=== PATIENT | female | born 1985 | race Caucasian/White ===

== ENCOUNTER 2024-08-03 06:50 | Outpatient (CLI) | payer OTHER | END 2024-08-03 23:59 | disposition home or self-care (01) | LOC: MRI02 06:50 | PROVIDERS: ATTEND Nurse Practitioner Family | DX: S43.492A Other sprain of left shoulder joint, initial encounter (principal); M75.102 Unspecified rotator cuff tear or rupture of left shoulder, not specified as traumatic; M75.81 Other shoulder lesions, right shoulder; M25.512 Pain in left shoulder; M19.012 Primary osteoarthritis, left shoulder; X58.XXXA Exposure to other specified factors, initial encounter; Y93.89 Activity, other specified; Y92.89 Other specified places as the place of occurrence of the external cause; Y99.8 Other external cause status | CPT/HCPCS: 73221 ==

== ENCOUNTER 2024-11-03 11:21 | Day surgery (SDC) | payer OTHER ==
[2024-10-28 12:13] LABS: BASOPHILS % (AUTO) 0.3 % (0-1); EOSINOPHILS # (AUTO) 0.1 X10'3 (0-0.9); EOSINOPHILS % (AUTO) 1.9 % (0-6); LYMPHOCYTES % (AUTO) 41.3 % (21-51); MEAN CORPUSCULAR HEMOGLOBIN 28.2 PG (27.0-31.0); MEAN CORPUSCULAR HGB CONC 32.1 g/dL (33.0-36.5); MEAN CORPUSCULAR VOLUME 87.8 FL (78-98); MEAN PLATELET VOLUME 7.6 FL (7.4-10.4); MONOCYTES # (AUTO) 0.5 X10'3 (0-0.9); MONOCYTES % (AUTO) 6.8 % (2-12); NEUTROPHILS # (AUTO) 3.6 X10'3 (1.8-7.7); NEUTROPHILS % (AUTO) 49.7 % (42-75); PRE OP HEMATOCRIT 37.3 % (35.0-45.0); PRE OP PLATELET COUNT 389 X10'3 (140-440); PRE OP WHITE BLOOD COUNT 7.2 10'3 (4.8-10.8); RED BLOOD COUNT 4.24 X10'6 (4.20-5.60); RED CELL DISTRIBUTION WIDTH 14.5 % (11.5-14.5)
[2024-10-28 12:15] LABS: ALBUMIN 3.3 G/DL (3.4-5.0); ALBUMIN/GLOBULIN RATIO 0.8 (1.1-1.5); ALKALINE PHOSPHATASE 113 IU/L (46-116); BLOOD UREA NITROGEN 14 MG/DL (7-18); CALCIUM 8.8 MG/DL (8.5-10.1); CHLORIDE 106 MMOL/L (99-107); PRE OP ALT 38 U/L (30-65); PRE OP ANION GAP 5 (8-16); PRE OP AST 29 U/L (10-37); PRE OP BILIRUB, TOTAL 0.3 MG/DL (0.0-1.0); PRE OP GLUCOSE 88 MG/DL (70-104); PRE OP POTASSIUM 4.3 MMOL/L (3.4-5.1); PRE OP SODIUM 140 MMOL/L (135-145); TOTAL CARBON DIOXIDE 29.3 MMOL/L (24-32); TOTAL PROTEIN 7.6 G/DL (6.4-8.2); eGFR 61 ML/MIN
[2024-11-03] VITALS (11 sets, daily range): BP systolic 112–137; BP diastolic 65–88; PULSE 70–100; RESP 12–16; TEMP 98.4–98.5; O2SAT 98–100
[~2024-11-03] VITALS: Ht 172.7 cm; Wt 103.5 kg
[2024-11-03] MEDS: ceFAZolin 2gm/dext,iso 50mL 50 ML IV ONE (05:30)
[~2024-11-03 11:21] MED LIST: ASCO500C12 PO; BUPR-480 PO; FISH OIL PO; LEVO125T8 PO; MAGN400C PO; METH1TAB32 PO
[2024-11-03] MEDS: INDOCYANINE GREEN 25 MG/10 ML VIAL IV ONE (11:51)
[2024-11-03] MEDS: famotidine 20mg tablet PO ONE (11:59)
[2024-11-03] MEDS: ringers solution, lacted 1,000 ML IV SCH (12:01)
[2024-11-03] MEDS ORDERED: ALPR-624 PO (12:09)
[2024-11-03] MEDS ORDERED: BUPIVAcaine 2.5mg/ml inj 50ml vial (contains preservative) ONE (13:20)
[2024-11-03] MEDS ORDERED: LIDOcaine 1% 30ml preserv. free vial ONE (13:21)
[2024-11-03] MEDS ORDERED: fentaNYL/PF 50MCG/1 ML 2ML syringe ONE (14:33)
[2024-11-03] MEDS ORDERED: acetaminophen 1,000mg/100ml IV 100 ML IV ONE (14:33)
[2024-11-03] MEDS ORDERED: glycopyrrolate 0.2mg/ml inj ONE (14:34)
[2024-11-03] MEDS ORDERED: midazolam 1 mg/ML 2ml injection ONE (14:34)
[2024-11-03] MEDS ORDERED: neostigmine methylsulfate 1 MG/ML 10ml vial ONE (14:34)
[2024-11-03] MEDS ORDERED: LIDOcaine 2% (20mg/ml) 5ml vial ONE (14:34)
[2024-11-03] MEDS ORDERED: rocuronium 10mg/ml inj IV ONE ×2 (14:34)
[2024-11-03] MEDS ORDERED: ondansetron/PF 4mg/2ml inj ONE (14:34)
[2024-11-03] MEDS ORDERED: propofol inj 20 ML IV ONE (14:35)
--- NOTE | 2024-11-03 14:41 | HISTORY AND PHYSICAL ---
History & Physical Providers to CC CC: MICKEY BONNER MD ~ History of Present Illness Reason for Admit\Complaint: Symptomatic cholelithiasis History of Present Illness Interval history and physical exam Patient was seen in my office little over a month ago with symptomatic c holelithiasis She wished to proceed with watchful waiting, however, she has had progressive and worsening symptoms She is here today for elective cholecystectomy She denies any change in her past medical history since she was seen in the office (please see previous history and physical exam for all pertinent details) She is scheduled for robotic assisted, laparoscopic possible open cholecystectomy. Allergies: Coded Allergies: acetaminophen (Verified Allergy, Unknown, ITCHING, 11/02/24) oxycodone (Verified Allergy, Unknown, ITCHING, 11/02/24) Home Medications Home Medications Active Reported Xanax (Alprazolam) 0.5 Mg Tablet 2 Tab PO PRN PRN 30 Days Vitamin C (Ascorbic Acid) 500 Mg Capsule.sa 1 Cap PO DAILY 30 Days Magnesium (Magnesium Oxide) 400 Mg Magnesium Capsule 1 Cap PO Q12H 30 Days [Fish Oil] 1 Unit PO DAILY Levothyroxine Sodium 125 Mcg Tablet 1 Tab PO DAILY Methenamine Hippurate 1 Gram Tablet 1 Tab PO BID Bupropion Xl (Bupropion HCl) 300 Mg Tab.er.24h 1 Tab PO DAILY ROS ROS Reviewed and negative Exam Vitals: Vital Signs Date Time Temp Pulse Resp B/P (MAP) Pulse Ox O2 Delivery O2 Flow Rate FiO2 11/03/24 11:30 100 16 100 11/03/24 11:30 Room Air 11/03/24 11:30 98.4 117/88 (98) General: 38-year-old female in no acute distress Chest: Lungs clear to auscultation bilaterally Cardiovascular: Regular rate and rhythm without murmurs Abdomen: Soft and nondistended Problems: (1) Symptomatic cholelithiasis Assessment & Plan: The risks, benefits, and alternatives to a robotic assisted, laparoscopic possible open cholecystectomy were discussed with the patient. Risks include, but are not limited to, bleeding, infection, injury to intra- abdominal structures, injury to the biliary tree, postoperative bile leak and retained common bile duct stone. Patient verbalized understanding and wishes to proceed with surgery. We will do so today as scheduled MICKEY BONNER MD Nov 03, 2024 14:41
[2024-11-03] MEDS ORDERED: sevoflurane 250ml liquid IH ONE (14:53)
[2024-11-03] MEDS ORDERED: ringers solution, lacted 1,000 ML IV SCH (15:00)
[2024-11-03] MEDS ORDERED: ondansetron/PF 4mg/2ml inj IV PRN (15:00)
[2024-11-03] MEDS ORDERED: fentaNYL/PF 50MCG/1 ML 2ML syringe IV PRN ×2 (15:00)
[2024-11-03] MEDS ORDERED: labetalol 20mg/4ml (5mg/ml) syringe IV PRN (15:00)
[2024-11-03] MEDS ORDERED: hydrALAZINE 20mg/ml inj. IV PRN (15:00)
[2024-11-03] MEDS ORDERED: morphine 2 MG/ML inj. syringe IV PRN (15:00)
[2024-11-03] MEDS ORDERED: morphine 4 MG/ML inj SYRINge IV PRN (15:00)
[2024-11-03] MEDS: BUPIVAcaine/PF 2.5 mg/ml (0.25%) 30ml vial IJ ONE (15:12)
--- NOTE | 2024-11-03 15:50 | OPERATIVE REPORT ---
Operative Report Providers to CC CC: MARKY BONNER MD ~ Date of Procedure: Nov 03, 2024 Pre-Operative Diagnosis: Symptomatic cholelithiasis Post-Operative Diagnosis SAME as PRE-Op Procedure Performed Robotic assisted, laparoscopic cholecystectomy Surgeon: Marky Bonner MD FACS [employer] None Anesthesiologist: Hunter Ibanez Type of Anesthesia: General Findings: Cholelithiasis Critical view of safety obtained and confirmed using fluorescent cholangiography Wound class III Complications None Prosthetics\Implants used: None Estimated Blood Loss: Minimal Specimen Removed: Gallbladder Description of Procedure: Patient was brought to the operating room and identified by the nursing staff and the attending physician. Patient was placed supine and general anesthesia was induced. A supraumbilical, midline incision was made, long enough to accommodate a 12 mm Brown port. Brown technique was used to gain entry into the abdomen. Stay sutures were placed in the Brown port anchored to the fascia. Abdomen was insufflated without incident. Laparoscope was inserted and the abdomen surveyed. Secondary, 8.5 mm robotic trochars were placed in the left upper quadrant and right lateral abdomen. Robotic arm was docked to the patient. Robotic instruments were guided intra- abdominally under laparoscopic visualization. Gallbladder was readily identified. Gallbladder was somewhat distended. It did fill with contrast using firefly. Fundus of the gallbladder was grasped and retracted over the dome of the liver. Infundibulum was retracted towards the right lower quadrant. Firefly technology was used to obtain a fluorescent cholangiogram and visualize the pertinent anatomy. Cystic duct was clearly visualized. Peritoneum overlying the triangle was incised with hook electrocautery. This allowed for circumferential dissection of the cystic duct and artery. Critical view of safety was obtained. Duct and artery were then clipped with hemo-lock clips and both structures divided. Gallbladder was retracted laterally and dissected out of the gallbladder fossa. A small rent in the gallbladder fossa led to some spillage of bile. This was suctioned and irrigated with a total of 1.5 L. Gallbladder was set aside and fluorescent cholangiogram of the gallbladder fossa was used to confirm no evidence of bile leak. Gallbladder was placed in a laparoscopic retrieval bag. Secondary trochars were removed and the abdomen allowed to deflate. Brown port was removed with the specimen in its retrieval bag. Fascia at the umbilical port site was closed with 0 Vicryl sutures. Skin was closed with 4-0 Monocryl sutures in a subcuticular fashion. About 40 cc of local anesthetic was used during the case. Sterile dressings were applied. Patient was awakened and taken to the postanesthesia care unit in stable condition. Counts repoted as correct: Yes MARKY BONNER MD Nov 03, 2024 15:50
[2024-11-03] MEDS: HYDROcodone/acetaminophen 5mg/325mg tablet PO PRN (17:15)
== END 2024-11-03 17:23 | disposition home or self-care (01) ==
LOC: PAS 11:21
PROVIDERS: ATTEND Surgery
DX: K80.10 Calculus of gallbladder with chronic cholecystitis without obstruction (principal); F32.A Depression, unspecified; F41.9 Anxiety disorder, unspecified; Z79.899 Other long term (current) drug therapy; Z88.5 Allergy status to narcotic agent; Z88.8 Allergy status to other drugs, medicaments and biological substances
CPT/HCPCS: 36415; 47563; 80053; 82948; 85025; J0131; J1100; J2003; J2250; J2405; J2704; J2710; J3010; J3490; J7030; J7120; S2900; Z7506; Z7508; Z7512; A4215; A4618; A7000